=== PATIENT | male | born 1960 | race Caucasian/White ===

== ENCOUNTER → 2024-01-04 10:36 | Outpatient (REF) | payer BC, SELFPAY | LOC: PAVMRI 10:36 | PROVIDERS: ATTENDING PHYSICIAN Internal Medicine Gastroenterology; FAMILY PHYSICIAN Family Medicine | DX: K50.00 Crohn's disease of small intestine without complications (principal) | CPT/HCPCS: 72197; 74183; A9575 ==

== ENCOUNTER 2025-06-12 12:21 | Emergency (ER) | payer BC, SELFPAY ==
[2025-06-12 12:23] VITALS: BP 155/89
[2025-06-12 12:39] VITALS: BP 151/80
[2025-06-12 12:41] VITALS: BMI 29.4
[2025-06-12] MEDS: NSS 1000 IV ×2 (12:43→15:02)
[2025-06-12 12:56] LABS: Hematocrit 46.4 % (39.0-52.0); Hemoglobin 16.3 g/dL (13.0-18.0); Mean Corp Hgb Conc. 35.1 g/dL (33.0-37.0); Mean Corpuscular Volume 85.1 fL (80.0-94.0); Nucleated Red Blood Cells % 0 % (-); Platelet Count 289 10^3/uL (130-400); Red Cell Dist. Width 12.6 % (11.5-14.5)
[2025-06-12 13:00] VITALS: BP 155/75
[2025-06-12 13:20] LABS: ALT (SGPT) 35 U/L (0-50); AST (SGOT) 33 U/L (17-59); Albumin 5.0 g/dl (3.5-5.0); Alkaline Phosphatase 44 U/L (38-126); Blood Urea Nitrogen 26 mg/dl (9-20); Calcium 10.0 mg/dl (8.4-10.2); Carbon Dioxide 21 mmol/L (22-30); Chloride 102 mmol/L (98-107); Estimated Creatinine Clearance 95 ml/min; Glucose 304 mg/dl (70-99); Lipase 82 U/L (23-300); Potassium 4.7 mmol/L (3.5-5.1); Sodium 135 mmol/L (135-145); Total Protein 7.6 g/dl (6.3-8.2); eGFR > 60.00
--- NOTE | 2025-06-12 13:30 | ED.GENMED ---
History of Present Illness
General
Chief Complaint: Abdominal Symptoms
Source: patient
Time Seen by Provider: 06/12/25 12:50
History of Present Illness
History of Present Illness:
64-year-old male with past medical history of hypertension, mitral valve prolapse, insulin-dependent diabetes, Crohn's disease presenting to the ER for evaluation of periumbilical abdominal pain described to be a constant dull pain with intermittent
sharper bursts accompanied with multiple episodes of nonbloody nonbilious emesis since 1 AM this morning. Patient states he initially felt the pain was similar to previous episodes after he gives himself his Mounjaro medication which he did
yesterday evening but that the pain usually resolves within about an hour. Patient states that the pain did not resolve and he normally does not get the nausea and vomiting accompanied with the symptoms. Patient states that at time of my exam his
nausea seems to be much improved and the pain seems to be subsiding a little. He denies any fevers, chills, rigors, bowel changes, urinary symptoms or any other concerns. He did not take anything for his symptoms prior to arrival. He does note
that he is usually on 10 mg of Mounjaro but more recently was switched back to 7-1/2 mg due to some of the GI upset that he was having at the 10 mg.
Past History
Past History
ED Past Medical History: HTN, NIDDM, Valvular disease, Other and Other (Crohn's)
ED Past Surgical History: Orthopedic
Social History
Tobacco: Non-smoker
Alcohol: None
Drug: None
Personal:
Living: with family
Employment: Employed
Family History
Family History: Other (Noncontributory)
Review of Systems
Review of Systems
All Other Systems: ROS reviewed and negative except as documented in HPI and ROS
Phy Exam
Physical Exam
Physical Exam:
GENERAL: Alert , in no apparent distress
EYE: clear conjunctiva b/l
HEAD: NCAT
ENT: o/p clr, mmm.
CARDIAC: Regular rate and rhythm .
LUNGS: Clear breath sounds bilaterally, no acute respiratory distress, no wheezes/rales/rhonchi
ABDOMEN: Normoactive bowel sounds, soft, without focal tenderness, no r/g, no cvat
NEUROLOGICAL: Alert and oriented
SKIN: Warm and dry, skin intact.
MUSCULOSKELETAL: well perfused.
PSYCH: Normal and appropriate interaction.
Scores
Heart Failure Risk
Heart Failure Risk Score: Not Applicable
Heart Score for Chest Pain Patients
STEMI patient?: Not applicable
Withdrawal Assessment of Alcohol
Withdrawal Assessment Completed?: Not applicable
Course
Orders/Labs/Results
Orders:
Orders
06/12/25 12:33
IV Insert/Care/Rem.- Treatment PRN
06/12/25 12:34
Complete Blood Count/With Diff Urgent
Comprehensive Metabolic Panel Urgent
Lipase Urgent
06/12/25 12:42
0.9% Sodium Chloride 1000 ml [Nss] 1,000 ml IV BOLUS
06/12/25 13:10
CR Abdomen - 1 View Urgent
Comment:
Reason For Exam: pain, vomiting, hx crohns, took mounjaro yesterday
06/12/25 14:34
Urinalysis Reflex To Culture Urgent
Date Specimen was Collected: 06/12/25
Time Specimen was Collected: 12:33
06/12/25 14:55
0.9% Sodium Chloride 1000 ml [Nss] 1,000 ml IV BOLUS
06/12/25 15:48
Bedside Glucose- Treatment ONCE
Abnormal Lab Results
06/12/25 06/12/25 06/12/25
12:34 14:34 16:03
WBC 11.2 H 10^3/uL
(4.8-10.8)
Absolute Neuts (auto) 9.8 H 10^3/uL
(1.4-6.5)
Absolute Lymphs (auto) 0.3 L 10^3/uL
(1.2-3.4)
Absolute Monos (auto) 0.9 H 10^3/uL
(0.1-0.6)
Neutrophils % 87.9 H %
(42.2-75.2)
Lymphocytes % 2.9 L %
(20.5-51.1)
Carbon Dioxide 21 L mmol/L
(22-30)
BUN 26 H mg/dl
(9-20)
Glucose 304 H mg/dl
(70-99)
Total Bilirubin 1.6 H mg/dl
(0.2-1.3)
Urine Ketones 3+ A
(Negative)
Urine Glucose 4+ A
(Negative)
POC Glucose 190 H mg/dl
(70-99)
06/12/25 12:34
06/12/25 12:34
Vital Signs
Initial and Last Documented VS:
Initial Vital Signs
Temp Pulse Resp BP Pulse Ox
98.2 F 108 16 155/89 100
06/12/25 12:23 06/12/25 12:23 06/12/25 12:23 06/12/25 12:23 06/12/25 12:23
Last Documented Vital Signs
Temp Pulse Resp BP Pulse Ox
98.2 F 108 16 155/75 95
06/12/25 12:23 06/12/25 12:23 06/12/25 12:23 06/12/25 13:00 06/12/25 13:36
Freezing Machine Operator consulted with Physician
Freezing Machine Operator consulted with physician?: Yes
Name of Physician Consulted: Dr. Smallwood
MDM/Problems Addressed
Differential Diagnosis Includes:
Medication side effect
Pancreatitis
Bowel obstruction
Paralytic ileus
Dehydration
Electrolyte imbalance
GERD
Gastritis
Peptic ulcer disease
Appendicitis
Cholecystitis
MDM/Problems Addressed:
64-year-old male presenting to the ER for evaluation of abdominal pain with nausea and vomiting since 1 AM, took his Mounjaro medication yesterday which patient suspects is the main culprit. Arrives to the ER noting his symptoms are little bit
improved presently. Patient declining anything for symptoms presently. Will check labs and x-ray of the abdomen. Disposition pending.
Chronic conditions affecting care: DM and Other (Crohn's disease)
*Radiology
Radiology exam reviewed: radiology read reviewed
*Pulse Oximetry
SaO2: 95
Oxygen Mode of Delivery: Room air
Patient hypoxic: no
*Critical Care Note
Total Time (30-74mins, 75-104mins- exclusive of procedures): Not Applicable
Comment
Comment:
Patient's lab findings noted for hyperglycemia, anion gap of 12. Patient states that he did not take his insulin this morning because he had not been anything. He does have a continuous glucose monitor and he has been tracking his blood sugar
throughout the day. Will treat patient with a second bolus of normal saline and recheck a fingerstick. Patient continues to maintain feeling much better since arriving to the ER, anticipate discharging home and outpatient follow-up as needed.
Patient Management
Escalation/DeEscalation of care consider admission/obs:
Radiology read noted. Overall I ordered the x-ray with concern for possible bowel obstruction. Based off of patient's symptoms I do not suspect any infectious etiologies or bowel ischemia. I did not feel patient needed stat CT imaging done today
especially with rapidly improving symptoms
ED Attending Note
-
Portions of this chart may have been created with voice recognition software.� Occasional wrong word or��sound alike� substitutions may have occurred due to the inherent limitations of voice recognition software.
Discharge Plan
Departure
Patient Disposition: Home (Routine Discharge)
Date of Disposition: 06/12/25
Time of Disposition: 15:48
Patient with high blood pressure during this ER visit?: Yes
Discharge Problem:
Medication side effect, Nausea and vomiting
Instructions: Nausea and Vomiting, Adult (DC)
Prescriptions:
New
ondansetron 4 mg tablet,disintegrating
4 mg PO TIDPRN PRN (Reason: nausea/vomiting) Qty: 8 0RF
No Action
metformin 500 MG tablet
500 mg PO MEALS
cetirizine 10 MG tablet
10 mg PO DAILY
mesalamine [Pentasa] 250 MG capsule, extended release
2,000 mg PO BID@0800,1700
glimepiride 2 MG tablet
2 mg PO DAILY
docusate sodium 100 MG capsule
200 mg PO HS
docusate sodium 100 MG capsule
100 mg PO DAILY
nebivolol [Bystolic] 5 MG tablet
5 mg PO DAILY
pantoprazole 40 MG tablet,delayed release (DR/EC)
40 mg PO BID Qty: 60 0RF
Referrals:
Javier Bullock DO [Family Provider, Family Practice]
Interventions
Interventions:
*Risk Screen - Suicide Last Done: 06/12/25 12:23
*General Assessment Last Done: 06/12/25 12:41
*Neglect/Abuse Screening Last Done: 06/12/25 12:23
*ED- Fall Risk Assessment Last Done: 06/12/25 12:41
*ED COVID-19 Vaccine History Last Done: 06/12/25 12:41
*Nursing Disposition Last Done: 06/12/25 16:06
QM-Qbhlqy-Aznveeuzta Assessment Last Done: 06/12/25 13:02
Discharge Date and Time
Print Language: [place] LEONE[place]
--- NOTE | 2025-06-12 14:29 | EDRN ---
Patient updated on labs and is going to try to give me a urine specimen
[2025-06-12 14:50] LABS: Urine Character Clear (Clear)
[2025-06-12 16:04] LABS: Glucose - Point of Care 190 mg/dl (70-99)
== END 2025-06-12 16:06 | disposition home or self-care (01) ==
LOC: EMR 12:21
PROVIDERS: Emergency Medicine; EMERGENCY PHYSICIAN Emergency Medicine; FAMILY PHYSICIAN Family Medicine
DX: R11.2 Nausea with vomiting, unspecified (principal); T38.3X5A Adverse effect of insulin and oral hypoglycemic [antidiabetic] drugs, initial encounter; E11.65 Type 2 diabetes mellitus with hyperglycemia; I10 Essential (primary) hypertension; I34.1 Nonrheumatic mitral (valve) prolapse; K50.90 Crohn's disease, unspecified, without complications; Z79.85 Long-term (current) use of injectable non-insulin antidiabetic drugs; Z79.84 Long term (current) use of oral hypoglycemic drugs
CPT/HCPCS: 99284; 96360; 96361; 74018; 80053; 81003; 82962; 83690; 85025